=== PATIENT | female | born 1960 | race Caucasian/White ===

== ENCOUNTER 2017-09-03 00:36 | Emergency (ER) | payer MEDICARE ==
[~2017-09-03] VITALS: Ht 167.6 cm; Wt 65.0 kg
[2017-09-03 04:35] VITALS: BP 94/55
== END 2017-09-03 07:31 | disposition home or self-care (01) ==
LOC: ED 06:48
DX: F10.120 Alcohol abuse with intoxication, uncomplicated (principal)
CPT/HCPCS: 99283

== ENCOUNTER 2017-09-07 11:24 | Emergency (ER) | payer MEDICARE ==
[~2017-09-07] VITALS: Ht 172.7 cm; Wt 69.9 kg
[2017-09-07 11:26] VITALS: BP 127/78
[2017-09-07] MEDS ORDERED: OMEP-110 PO (11:50)
[2017-09-07] MEDS ORDERED: FLUT9.9S INH (11:50)
[2017-09-07] MEDS ORDERED: CHOL200040 PO (11:50)
[2017-09-07] MEDS ORDERED: HYDROcodone/APAP 5/325 TABLET PO ONE (13:00)
[2017-09-07] MEDS ORDERED: HYDROcodone/APAP 5/325 TABLET ONE (13:22)
== END 2017-09-07 13:37 | disposition home or self-care (01) ==
LOC: ED 13:25
DX: S06.0X9A Concussion with loss of consciousness of unspecified duration, initial encounter (principal); S16.1XXA Strain of muscle, fascia and tendon at neck level, initial encounter; S20.212A Contusion of left front wall of thorax, initial encounter; R29.6 Repeated falls; F17.200 Nicotine dependence, unspecified, uncomplicated; W18.30XA Fall on same level, unspecified, initial encounter; Y93.89 Activity, other specified; Y99.8 Other external cause status; Y92.89 Other specified places as the place of occurrence of the external cause
CPT/HCPCS: 70450; 72125; 93005; 99284

== ENCOUNTER 2018-03-18 14:19 | Emergency (ER) | payer MEDICARE ==
[~2018-03-18] VITALS: Ht 172.7 cm; Wt 75.8 kg
[~2018-03-18 14:19] MED LIST: CHOL200040 PO; FLUT9.9S INH; OMEP-110 PO
[2018-03-18] MEDS ORDERED: OMEP20TA62 PO (15:13)
[2018-03-18] MEDS ORDERED: ALBUTEROL INH (15:13)
[2018-03-18] MEDS ORDERED: CHOL100015 PO (15:13)
[2018-03-18] MEDS ORDERED: ALBUTEROL/IPRATROPIUM 2.5MG/0.5MG, 3 ML ONE (15:49)
[2018-03-18] MEDS ORDERED: ALBUTEROL/IPRATROPIUM 2.5MG/0.5MG, 3 ML NPPB ONE (16:00)
[2018-03-18 16:50] VITALS: BP 126/75
== END 2018-03-18 17:20 | disposition home or self-care (01) ==
LOC: ED 16:16
DX: J98.01 Acute bronchospasm (principal); J32.0 Chronic maxillary sinusitis; F17.200 Nicotine dependence, unspecified, uncomplicated; Z88.6 Allergy status to analgesic agent; Z88.1 Allergy status to other antibiotic agents
CPT/HCPCS: 71046; 94640; 99284; J7512; J7620

== ENCOUNTER 2018-08-31 07:07 | Day surgery (SDC) | payer MEDICARE ==
[~2018-08-31] VITALS: Ht 172.7 cm; Wt 78.6 kg
[~2018-08-31 07:07] MED LIST changes: +ALBU8.5H8 INH; +ALBUTEROL INH; +ASPI81TA45 PO; +BACL-19 PO; +BUPIVACAINE/PF-EPI 0.5% 1:200K ONE; +CALC200T3 PO; +CHOL100015 PO; +DEXL60CA2 PO; +DIPH-600 PO; +OMEP20TA62 PO
[2018-08-31] MEDS ORDERED: LIDOCAINE-MPF 1%, 2ML ONE (07:45)
[2018-08-31] MEDS ORDERED: LACTATED RINGERS 1,000 ML IV SCH (07:56)
[2018-08-31] MEDS ORDERED: SCOPOLAMINE PATCH, 1.5MG PATCH.TD72 TD ONE (08:26)
[2018-08-31] MEDS ORDERED: PROPOFOL 10 MG/ML, 20ML ONE (09:03)
[2018-08-31] MEDS ORDERED: ONDANSETRON 2MG/ML, 2ML ONE (09:03)
[2018-08-31] MEDS ORDERED: DEXAMETHASONE 4 MG/ML, 1ML ONE (09:03)
[2018-08-31] MEDS ORDERED: CEFAZOLIN 1,000 MG ONE (09:03)
[2018-08-31] MEDS ORDERED: SUCCINYLCHOLINE 20 MG/ML, 10ML ONE (09:03)
[2018-08-31] MEDS ORDERED: MIDAZOLAM 1 MG/ML, 2ML ONE (09:04)
[2018-08-31] MEDS ORDERED: FENTANYL PF 250 MCG/5ML ONE (09:04)
[2018-08-31] MEDS ORDERED: OXYcodone 5 MG/5 ML ORAL.SOL UDC PO PRN (09:30)
[2018-08-31] MEDS ORDERED: HYDROmorphone 2 MG/ML, 1ML IVPush PRN (09:30)
[2018-08-31] MEDS ORDERED: KETOROLAC 30 MG/1 ML IV PRN (09:30)
[2018-08-31] MEDS ORDERED: DIAZEPAM 5 MG/ML, 2ML IVPush PRN (09:30)
[2018-08-31] MEDS ORDERED: MEPERIDINE/PF 25MG/0.5ML IVPush PRN (09:30)
[2018-08-31] MEDS ORDERED: hydrALAzine 20 MG/ML, 1ML IV PRN (09:30)
[2018-08-31] MEDS ORDERED: ACETAMINOPHEN 325 MG TABLET PO PRN (09:30)
[2018-08-31] MEDS ORDERED: LABETALOL 5MG/ML, 20ML IV PRN (09:30)
[2018-08-31] MEDS ORDERED: FENTANYL PF 100 MCG/2ML IV PRN (09:30)
[2018-08-31] MEDS ORDERED: PROMETHAZINE 25 MG/ML, 1ML IV PRN (09:30)
[2018-08-31] MEDS ORDERED: ALBUTEROL SULFATE 2.5 MG/3 ML NPPB PRN (09:30)
[2018-08-31] MEDS ORDERED: MEPERIDINE/PF 50 MG/ML ONE (09:32)
[2018-08-31] MEDS ORDERED: PROMETHAZINE 25 MG/ML, 1ML ONE (10:00)
[2018-08-31] MEDS ORDERED: OXYcodone 5 MG/5 ML ORAL.SOL UDC ONE (10:00)
== END 2018-08-31 11:10 | disposition home or self-care (01) ==
LOC: OUT 07:07
PROVIDERS: ATTEND Surgery
DX: M79.89 Other specified soft tissue disorders (principal); E78.5 Hyperlipidemia, unspecified; K21.9 Gastro-esophageal reflux disease without esophagitis; F41.9 Anxiety disorder, unspecified; F17.210 Nicotine dependence, cigarettes, uncomplicated; Z88.1 Allergy status to other antibiotic agents; Z88.5 Allergy status to narcotic agent; Z88.8 Allergy status to other drugs, medicaments and biological substances; Z79.82 Long term (current) use of aspirin; Z85.828 Personal history of other malignant neoplasm of skin; Z72.89 Other problems related to lifestyle
CPT/HCPCS: 21931; 88305; 93005; J0330; J0690; J1100; J2175; J2250; J2405; J2550; J2704; J3010; J7120; J3490